=== PATIENT | male | born 1950 | race Caucasian/White ===

== ENCOUNTER 2018-07-30 15:15 | Outpatient (CLI) | payer BC | END 2018-07-30 23:59 | disposition home or self-care (01) | LOC: CARD DIAG 15:15 | PROVIDERS: ATTEND Internal Medicine Cardiovascular Disease | DX: I34.0 Nonrheumatic mitral (valve) insufficiency (principal); Z87.891 Personal history of nicotine dependence | CPT/HCPCS: 93306 ==

== ENCOUNTER 2019-03-25 14:12 | Inpatient (IN) | payer MEDICARE, BC ==
[~2019-03-25] VITALS: Ht 177.8 cm; Wt 94.0 kg
[~2019-03-25 14:12] MED LIST: ATOR10TA70 PO; BUDE10.2 INH; CHOL100046 PO; LOSA50TA3 PO
[2019-03-25 15:57] LABS: BASOPHILS # (AUTO) 0.1 X10'3 (0-0.2); BASOPHILS % (AUTO) 0.8 % (0-1); EOSINOPHILS # (AUTO) 0.1 X10'3 (0-0.9); EOSINOPHILS % (AUTO) 1.4 % (0-6); HEMATOCRIT 42.6 % (42.0-52.0); HEMOGLOBIN 14.9 g/dl (14.0-17.9); LYMPHOCYTES # (AUTO) 2.3 X10'3 (1.1-4.8); LYMPHOCYTES % (AUTO) 24.1 % (21-51); MEAN CORPUSCULAR HEMOGLOBIN 32.4 PG (27.0-31.0); MEAN CORPUSCULAR HGB CONC 35.1 g/dL (33.0-36.5); MEAN CORPUSCULAR VOLUME 92.4 FL (78-98); MONOCYTES % (AUTO) 10.3 % (2-12); NEUTROPHILS % (AUTO) 63.4 % (42-75); PLATELET COUNT 294 X10'3 (140-440); RED BLOOD COUNT 4.61 X10'6 (4.70-6.10); RED CELL DISTRIBUTION WIDTH 13.5 % (11.5-14.5); WHITE BLOOD COUNT 9.4 X10'3 (4.5-11.0)
[2019-03-25 16:13] LABS: ALANINE AMINOTRANSFERASE 47 U/L (12-78); ALBUMIN 3.7 G/DL (3.4-5.0); ALBUMIN/GLOBULIN RATIO 0.9 (1.1-1.5); ALKALINE PHOSPHATASE 68 IU/L (46-116); ANION GAP 6 (8-16); ASPARTATE AMINO TRANSFERASE 23 U/L (10-37); BILIRUBIN,TOTAL 0.4 MG/DL (0.1-1.0); BLOOD UREA NITROGEN 19 MG/DL (7-18); CALCIUM 9.8 MG/DL (8.5-10.1); CHLORIDE 105 MMOL/L (99-107); GLUCOSE 106 MG/DL (70-104); POTASSIUM 4.1 MMOL/L (3.5-5.1); SODIUM 140 MMOL/L (135-145); TOTAL CARBON DIOXIDE 28.7 MMOL/L (24-32); TOTAL PROTEIN 7.7 G/DL (6.4-8.2); eGFR 74 ML/MIN
[2019-03-25] MEDS ORDERED: METO25TA6 PO (19:16)
[2019-03-25] MEDS ORDERED: LOSA100T57 PO (19:16)
[2019-03-25] MEDS ORDERED: ALBU2.5V13 NEB (19:16)
[2019-03-25] MEDS ORDERED: heparin 10,000 units/1 ML INJ IV PRN (20:25)
[2019-03-25] MEDS ORDERED: heparin 10,000 units/1 ML INJ IV ONE ×2 (20:25→20:35)
--- NOTE | 2019-03-25 20:44 | NUR ---
PER . PT NPO AT MIDNIGHT
[2019-03-25] MEDS ORDERED: mag hydrox/Alum hydrox/simeth 30ml oral suspension PO PRN (20:50)
[2019-03-25] MEDS ORDERED: magnesium hydroxide 30ml (MOM) UD suspension PO PRN (20:50)
[2019-03-25] MEDS ORDERED: acetaminophen 325mg tablet PO PRN (20:50)
[2019-03-25] MEDS ORDERED: ondansetron/PF 4mg/2ml inj IV PRN (20:50)
[2019-03-25] MEDS ORDERED: albuterol 2.5 MG/3 ML nebule NEB PRN (20:55)
[2019-03-25] MEDS: heparin 25,000 UNIT/250ml bag 250 ML IV SCH (21:16)
--- NOTE | 2019-03-25 21:29 | NUR ---
pt has clothes, wallet with ID and small amount of huffman, cell phone, and has upper and lower dentures in place.
--- NOTE | 2019-03-25 21:30 | NUR ---
I have received report from ZACKERY Eubanks and had the opportunity to ask questions and assume patient care.
[2019-03-25 21:45] VITALS: BP 150/85
--- NOTE | 2019-03-25 21:45 | NUR ---
Patient arrived to room 307 via [facility] with monitor attached, at bedside, all known belongings with patient. patient ambulated from [facility] to hospital bed. patient VS WNL. Will continue to monitor.
[2019-03-25 22:00] VITALS: BP 126/74
[2019-03-26] VITALS (17 sets, daily range): BP systolic 117–146; BP diastolic 61–83
[2019-03-26] MEDS ORDERED: pneumococcal 23-VAL P-sac vacc 25 mcg/0.5ml vial IMVAC ONE (00:05)
[2019-03-26] MEDS: normal saline 1000ml 1,000 ML IV SCH (01:37)
[2019-03-26 03:40] LABS: BASOPHILS % (AUTO) 0.6 % (0-1); EOSINOPHILS # (AUTO) 0.1 X10'3 (0-0.9); EOSINOPHILS % (AUTO) 1.9 % (0-6); HEMATOCRIT 40.8 % (42.0-52.0); HEMOGLOBIN 14.4 g/dl (14.0-17.9); LYMPHOCYTES # (AUTO) 1.6 X10'3 (1.1-4.8); LYMPHOCYTES % (AUTO) 21.4 % (21-51); MEAN CORPUSCULAR HEMOGLOBIN 32.8 PG (27.0-31.0); MEAN CORPUSCULAR HGB CONC 35.3 g/dL (33.0-36.5); MEAN CORPUSCULAR VOLUME 92.8 FL (78-98); MEAN PLATELET VOLUME 8.4 FL (7.4-10.4); MONOCYTES # (AUTO) 0.8 X10'3 (0-0.9); MONOCYTES % (AUTO) 10.5 % (2-12); NEUTROPHILS # (AUTO) 4.9 X10'3 (1.8-7.7); NEUTROPHILS % (AUTO) 65.6 % (42-75); PLATELET COUNT 263 X10'3 (140-440); RED BLOOD COUNT 4.39 X10'6 (4.70-6.10); RED CELL DISTRIBUTION WIDTH 13.4 % (11.5-14.5); WHITE BLOOD COUNT 7.5 X10'3 (4.5-11.0)
[2019-03-26 04:09] LABS: ALANINE AMINOTRANSFERASE 45 U/L (12-78); ALBUMIN 3.4 G/DL (3.4-5.0); ALKALINE PHOSPHATASE 71 IU/L (46-116); BILIRUBIN,TOTAL 0.4 MG/DL (0.1-1.0); BLOOD UREA NITROGEN 14 MG/DL (7-18); BUN/CREATININE RATIO 14.7 (5.4-32.0); CALCIUM 8.4 MG/DL (8.5-10.1); CREATININE 0.95 MG/DL (0.60-1.10); TOTAL CARBON DIOXIDE 24.2 MMOL/L (24-32); TOTAL PROTEIN 6.9 G/DL (6.4-8.2); eGFR 79 ML/MIN
--- NOTE | 2019-03-26 04:31 | NUR ---
PTT 124, spoke with Dr. Pavon,. stopping heparin gtt, for 2 hours, reduce rate by 3units/kg. and redraw PTT two hours afterwards.
[2019-03-26 05:03] LABS: ANION GAP 10 (8-16); ASPARTATE AMINO TRANSFERASE 24 U/L (10-37); CHLORIDE 107 MMOL/L (99-107); GLUCOSE 157 MG/DL (70-104); POTASSIUM 3.8 MMOL/L (3.5-5.1); SODIUM 141 MMOL/L (135-145)
--- NOTE | 2019-03-26 05:45 | NUR ---
[place] documentation and medication administration: I have reviewed and agree with all interventions, assessments performed and documented by ZACKERY Olmedo.
--- NOTE | 2019-03-26 06:00 | NUR ---
Problems reprioritized. Patient report given, questions answered & plan of care reviewed with ZACKERY Brewer.
[2019-03-26] MEDS: heparin 25,000 UNIT/250ml bag 250 ML IV SCH (06:28)
--- NOTE | 2019-03-26 06:30 | NUR ---
Patient in room MED 307. I have received report from Honorio Bell and Teodora BELL and had the opportunity to ask questions and assume patient care.
[2019-03-26] MEDS: metoprolol tartrate 25mg tablet PO SCH ×2 (09:44→20:52)
[2019-03-26] MEDS: atorvastatin 10mg tablet PO SCH (09:45)
[2019-03-26] MEDS: losartan 50mg tablet PO SCH (09:46)
[2019-03-26] MEDS: heparin 1,000 UNITS/NS 500ml 500 ML IV SCH (10:18)
[2019-03-26] MEDS ORDERED: iohexol 300mg/ml 100ml inj. ONE (10:19)
[2019-03-26] MEDS ORDERED: LIDOcaine 1%/PF 5ML 10 MG/ML VIAL ONE (10:19)
[2019-03-26] MEDS ORDERED: LIDOcaine 1%/PF 5ML 10 MG/ML VIAL SQ ONE (10:25)
[2019-03-26] MEDS ORDERED: fentaNYL/PF 50MCG/1 ML 2ML syringe IV PRN (10:25)
[2019-03-26] MEDS ORDERED: midazolam 2 mg/2 ml injection IV PRN (10:25)
[2019-03-26] MEDS ORDERED: heparin 1,000 UNITS/NS 500ml 500 ML ONE ×2 (10:27→11:27)
[2019-03-26] MEDS ORDERED: fentaNYL/PF 50MCG/1 ML 2ML syringe ONE ×2 (10:27→11:10)
[2019-03-26] MEDS ORDERED: midazolam 2 mg/2 ml injection ONE ×2 (10:27→11:10)
--- NOTE | 2019-03-26 10:45 | NUR ---
Dr. Mackey came to consult and educate patient on upcoming procedure to dissolve the clot. Saurabh ROMERO RN here to transport patient to procedure room. Patient will go to Room 2037 in ICU after procedure, report to be called.
[2019-03-26] MEDS ORDERED: tPA-cathflo 2mg/2ml IV flush 4 MG in normal saline 100ml IV soln 100 ML ICATH SCH (11:00)
--- NOTE | 2019-03-26 12:15 | NUR ---
Pt arrived to floor and transferred to hospital bed and placed on monitor; vital signs stable. Pt oriented to room with call light in reach. Pt educated to not move left arm. Orders for nolan catheter; however, pt requesting to use urinal instead of catheter.
[2019-03-26] MEDS: tPA-cathflo 2mg/2ml IV flush 4 MG in normal saline 100ml IV soln 100 ML ICATH SCH (18:00)
--- NOTE | 2019-03-26 18:30 | NUR ---
Problems reprioritized. Patient report given, questions answered & plan of care reviewed with Liz VIZCARRA.
--- NOTE | 2019-03-26 18:30 | NUR ---
Patient in room ICU 2037. I have received report from ZACKERY Crawford and had the opportunity to ask questions and assume patient care.
[2019-03-26 22:20] LABS: HEMOGLOBIN 13.6 g/dl (14.0-17.9); MEAN CORPUSCULAR HEMOGLOBIN 32.6 PG (27.0-31.0); MEAN CORPUSCULAR VOLUME 93.2 FL (78-98); MEAN PLATELET VOLUME 8.3 FL (7.4-10.4); PLATELET COUNT 238 X10'3 (140-440); RED BLOOD COUNT 4.18 X10'6 (4.70-6.10); RED CELL DISTRIBUTION WIDTH 13.3 % (11.5-14.5); WHITE BLOOD COUNT 7.2 X10'3 (4.5-11.0)
[2019-03-27] VITALS (24 sets, daily range): BP systolic 119–155; BP diastolic 59–84
[2019-03-27] MEDS: heparin 1,000 UNITS/NS 500ml 500 ML IV SCH (00:23)
[2019-03-27] MEDS: tPA-cathflo 2mg/2ml IV flush 4 MG in normal saline 100ml IV soln 100 ML ICATH SCH ×2 (00:24→06:00)
[2019-03-27 04:20] LABS: BASOPHILS % (AUTO) 0.3 % (0-1); EOSINOPHILS # (AUTO) 0.1 X10'3 (0-0.9); EOSINOPHILS % (AUTO) 1.2 % (0-6); HEMATOCRIT 40.1 % (42.0-52.0); HEMOGLOBIN 13.7 g/dl (14.0-17.9); LYMPHOCYTES # (AUTO) 1.7 X10'3 (1.1-4.8); MEAN CORPUSCULAR HEMOGLOBIN 32.1 PG (27.0-31.0); MEAN CORPUSCULAR HGB CONC 34.2 g/dL (33.0-36.5); MEAN CORPUSCULAR VOLUME 93.8 FL (78-98); MEAN PLATELET VOLUME 7.9 FL (7.4-10.4); MONOCYTES # (AUTO) 0.9 X10'3 (0-0.9); MONOCYTES % (AUTO) 9.8 % (2-12); NEUTROPHILS # (AUTO) 6.7 X10'3 (1.8-7.7); NEUTROPHILS % (AUTO) 70.7 % (42-75); PLATELET COUNT 230 X10'3 (140-440); RED BLOOD COUNT 4.27 X10'6 (4.70-6.10); RED CELL DISTRIBUTION WIDTH 13.3 % (11.5-14.5); WHITE BLOOD COUNT 9.4 X10'3 (4.5-11.0)
[2019-03-27 04:34] LABS: ALANINE AMINOTRANSFERASE 33 U/L (12-78); ALBUMIN 3.1 G/DL (3.4-5.0); ALBUMIN/GLOBULIN RATIO 0.9 (1.1-1.5); ALKALINE PHOSPHATASE 67 IU/L (46-116); ANION GAP 8 (8-16); ASPARTATE AMINO TRANSFERASE 13 U/L (10-37); BILIRUBIN,TOTAL 0.6 MG/DL (0.1-1.0); BLOOD UREA NITROGEN 10 MG/DL (7-18); BUN/CREATININE RATIO 10.3 (5.4-32.0); CHLORIDE 106 MMOL/L (99-107); CREATININE 0.97 MG/DL (0.60-1.10); GLUCOSE 119 MG/DL (70-104); SODIUM 140 MMOL/L (135-145); TOTAL CARBON DIOXIDE 26.5 MMOL/L (24-32); TOTAL PROTEIN 6.4 G/DL (6.4-8.2); eGFR 77 ML/MIN
[2019-03-27 04:40] LABS: PARTIAL THROMBOPLASTIN TIME 34 SECONDS (22-32)
[2019-03-27] MEDS: metoprolol tartrate 25mg tablet PO SCH ×2 (09:03→19:25)
[2019-03-27] MEDS: atorvastatin 10mg tablet PO SCH (09:03)
[2019-03-27] MEDS: losartan 50mg tablet PO SCH (09:04)
[2019-03-27] MEDS ORDERED: iohexol 300mg/ml 100ml inj. ONE (10:22)
[2019-03-27] MEDS ORDERED: fentaNYL/PF 50MCG/1 ML 2ML syringe ONE ×2 (10:47→11:02)
[2019-03-27] MEDS ORDERED: heparin 1,000 UNITS/NS 500ml 500 ML ONE (10:50)
[2019-03-27] MEDS: enoxaparin 30mg/0.3ml syringe SUBCUT SCH ×2 (12:14→19:23)
[2019-03-27] MEDS: enoxaparin 60mg/0.6ml syringe SUBCUT SCH ×2 (12:16→19:24)
[2019-03-27 13:57] LABS: HEMATOCRIT 39.6 % (42.0-52.0); HEMOGLOBIN 13.9 g/dl (14.0-17.9); MEAN CORPUSCULAR HGB CONC 35.2 g/dL (33.0-36.5); MEAN CORPUSCULAR VOLUME 93.7 FL (78-98); MEAN PLATELET VOLUME 8.5 FL (7.4-10.4); PLATELET COUNT 226 X10'3 (140-440); RED BLOOD COUNT 4.23 X10'6 (4.70-6.10); RED CELL DISTRIBUTION WIDTH 13.6 % (11.5-14.5); WHITE BLOOD COUNT 9.9 X10'3 (4.5-11.0)
--- NOTE | 2019-03-27 16:52 | NUR ---
Pt was off the unit from 1028 to 1145 in IR. Sheat removed, Heparin and TPA D/C. Pt returned to unit at 1145. In stable condition. L-arm warm, pulses palpable, no Numbness or tingling.
--- NOTE | 2019-03-27 17:31 | NUR ---
Pt transferred to room 3012 per w/c. in stable condition. Report given to RN upstairs.
--- NOTE | 2019-03-27 17:33 | NUR ---
received report from ZACKERY Briceno in ICU. pt arrived to unit in stable condition with at bedside. pt alert and oriented. small dressing on left upper arm. palpable radial and pedal pulses. tele in place. pt oriented to room, bed locked, low, call light in reach.
--- NOTE | 2019-03-27 18:15 | NUR ---
Problems reprioritized. Patient report given, questions answered & plan of care reviewed with ZACKERY Weston.
--- NOTE | 2019-03-27 18:16 | NUR ---
Patient in room PCU 3012. I have received report from ZACKERY Prado and had the opportunity to ask questions and assume patient care.
[2019-03-27] MEDS: normal saline 1000ml 1,000 ML IV SCH (20:48)
[2019-03-28 02:00] VITALS: BP 127/80
[2019-03-28 06:06] LABS: BASOPHILS % (AUTO) 0.4 % (0-1); EOSINOPHILS # (AUTO) 0.1 X10'3 (0-0.9); EOSINOPHILS % (AUTO) 1.6 % (0-6); HEMATOCRIT 40.3 % (42.0-52.0); HEMOGLOBIN 13.9 g/dl (14.0-17.9); LYMPHOCYTES # (AUTO) 2.2 X10'3 (1.1-4.8); LYMPHOCYTES % (AUTO) 22.8 % (21-51); MEAN CORPUSCULAR HEMOGLOBIN 32.4 PG (27.0-31.0); MEAN CORPUSCULAR HGB CONC 34.6 g/dL (33.0-36.5); MEAN CORPUSCULAR VOLUME 93.9 FL (78-98); MEAN PLATELET VOLUME 8.9 FL (7.4-10.4); MONOCYTES % (AUTO) 10.1 % (2-12); NEUTROPHILS # (AUTO) 6.2 X10'3 (1.8-7.7); NEUTROPHILS % (AUTO) 65.1 % (42-75); PLATELET COUNT 214 X10'3 (140-440); RED CELL DISTRIBUTION WIDTH 13.2 % (11.5-14.5); WHITE BLOOD COUNT 9.5 X10'3 (4.5-11.0)
--- NOTE | 2019-03-28 06:15 | NUR ---
Patient in room PCU 3012a. I have received report from ZACKERY Weston and had the opportunity to ask questions and assume patient care. Patient sleeping at this time, no distress noted. Will continue to monitor.
--- NOTE | 2019-03-28 06:20 | NUR ---
Problems reprioritized. Patient report given, questions answered & plan of care reviewed with ZACKERY Abraham.
[2019-03-28 06:49] LABS: ALANINE AMINOTRANSFERASE 30 U/L (12-78); ALBUMIN 3.3 G/DL (3.4-5.0); ALBUMIN/GLOBULIN RATIO 0.9 (1.1-1.5); ALKALINE PHOSPHATASE 71 IU/L (46-116); ANION GAP 11 (8-16); ASPARTATE AMINO TRANSFERASE 15 U/L (10-37); BILIRUBIN,TOTAL 0.7 MG/DL (0.1-1.0); BLOOD UREA NITROGEN 12 MG/DL (7-18); BUN/CREATININE RATIO 12.9 (5.4-32.0); CALCIUM 8.8 MG/DL (8.5-10.1); CHLORIDE 104 MMOL/L (99-107); CREATININE 0.93 MG/DL (0.60-1.10); GLUCOSE 120 MG/DL (70-104); POTASSIUM 3.8 MMOL/L (3.5-5.1); SODIUM 140 MMOL/L (135-145); TOTAL CARBON DIOXIDE 24.6 MMOL/L (24-32); eGFR 81 ML/MIN
[2019-03-28 07:06] VITALS: BP 148/90
[2019-03-28] MEDS: metoprolol tartrate 25mg tablet PO SCH (07:19)
[2019-03-28] MEDS: losartan 50mg tablet PO SCH (07:19)
[2019-03-28] MEDS: atorvastatin 10mg tablet PO SCH (07:19)
[2019-03-28] MEDS: enoxaparin 30mg/0.3ml syringe SUBCUT SCH (07:20)
[2019-03-28] MEDS: enoxaparin 60mg/0.6ml syringe SUBCUT SCH (07:20)
[2019-03-28 10:43] LABS: HEMATOCRIT 39.1 % (42.0-52.0); HEMOGLOBIN 13.7 g/dl (14.0-17.9); MEAN CORPUSCULAR HEMOGLOBIN 32.4 PG (27.0-31.0); MEAN CORPUSCULAR HGB CONC 35.1 g/dL (33.0-36.5); MEAN CORPUSCULAR VOLUME 92.3 FL (78-98); MEAN PLATELET VOLUME 8.3 FL (7.4-10.4); PLATELET COUNT 229 X10'3 (140-440); RED BLOOD COUNT 4.23 X10'6 (4.70-6.10); RED CELL DISTRIBUTION WIDTH 13.2 % (11.5-14.5); WHITE BLOOD COUNT 8.7 X10'3 (4.5-11.0)
[2019-03-28 11:00] VITALS: BP 129/79
[2019-03-28] MEDS ORDERED: APIX5TAB3 PO (11:42)
--- NOTE | 2019-03-28 12:27 | NUR ---
Patient stable for discharge per MD. Patient given education on discharge instruction and new medications. New rx faxed to [facility] on [address] by MD. Patient verbalized understanding. PIV d/c'd, catheter intact. Tele monitor removed and returned to television schedule coordinator. Patient ambulated off unit with staff without difficulty.
== END 2019-03-28 12:25 | disposition home or self-care (01) | DRG 253 ==
LOC: ER 14:13 → MED 3N 21:46 → ICU 2S 03-26 12:15 → PCU 3S 03-27 17:28
PROVIDERS: ADMIT Internal Medicine; ATTEND Family Medicine
PROC: 3E0234Z Introduction of Serum, Toxoid and Vaccine into Muscle, Percutaneous Approach (ICD-10-PCS; 2019-03-26)
PROC: B51N1ZZ Fluoroscopy of Left Upper Extremity Veins using Low Osmolar Contrast (ICD-10-PCS; 2019-03-26)
PROC: B5171ZZ Fluoroscopy of Left Subclavian Vein using Low Osmolar Contrast (ICD-10-PCS; 2019-03-26)
PROC: 3E05317 Introduction of Other Thrombolytic into Peripheral Artery, Percutaneous Approach (ICD-10-PCS; 2019-03-26)
PROC: 05763ZZ Dilation of Left Subclavian Vein, Percutaneous Approach (ICD-10-PCS; principal; 2019-03-27)
PROC: B51N1ZZ Fluoroscopy of Left Upper Extremity Veins using Low Osmolar Contrast (ICD-10-PCS; 2019-03-27)
PROC: B5171ZZ Fluoroscopy of Left Subclavian Vein using Low Osmolar Contrast (ICD-10-PCS; 2019-03-27)
DX: I82.B12 Acute embolism and thrombosis of left subclavian vein (principal); D68.59 Other primary thrombophilia; I82.A12 Acute embolism and thrombosis of left axillary vein; E66.9 Obesity, unspecified; Z68.29 Body mass index [BMI] 29.0-29.9, adult; E78.00 Pure hypercholesterolemia, unspecified; E78.5 Hyperlipidemia, unspecified; I10 Essential (primary) hypertension; K21.9 Gastro-esophageal reflux disease without esophagitis; J44.9 Chronic obstructive pulmonary disease, unspecified; I49.5 Sick sinus syndrome; I25.10 Atherosclerotic heart disease of native coronary artery without angina pectoris; Z79.01 Long term (current) use of anticoagulants; Z23 Encounter for immunization; Z86.718 Personal history of other venous thrombosis and embolism; Z95.0 Presence of cardiac pacemaker; Z87.891 Personal history of nicotine dependence
CPT/HCPCS: 36005; 36415; 37212; 37214; 37248; 71045; 75820; 76937; 80053; 82948; 83880; 85025; 85027; 85384; 85610; 85730; 87081; 90732; 93005; 93971; 96365; 99152; 99153; 99285; C1725; C1729; C1769; C1894; G0378; J1644; J1650; J2250; J2997; J3010; J7030; Q9967

== ENCOUNTER 2020-07-10 06:05 | Day surgery (SDC) | payer BC, MEDICARE ==
[2020-07-09 14:40] LABS: BASOPHILS # (AUTO) 0.1 X10'3 (0-0.2); BASOPHILS % (AUTO) 0.7 % (0-1); EOSINOPHILS # (AUTO) 0.1 X10'3 (0-0.9); EOSINOPHILS % (AUTO) 1.5 % (0-6); HEMATOCRIT 40.6 % (42.0-52.0); HEMOGLOBIN 13.8 g/dl (14.0-17.9); LYMPHOCYTES # (AUTO) 2.1 X10'3 (1.1-4.8); LYMPHOCYTES % (AUTO) 26.7 % (21-51); MEAN CORPUSCULAR HEMOGLOBIN 31.7 PG (27.0-31.0); MEAN CORPUSCULAR VOLUME 93.3 FL (78-98); MEAN PLATELET VOLUME 7.8 FL (7.4-10.4); MONOCYTES # (AUTO) 0.7 X10'3 (0-0.9); MONOCYTES % (AUTO) 8.5 % (2-12); NEUTROPHILS # (AUTO) 4.9 X10'3 (1.8-7.7); NEUTROPHILS % (AUTO) 62.6 % (42-75); PLATELET COUNT 314 X10'3 (140-440); RED BLOOD COUNT 4.35 X10'6 (4.70-6.10); RED CELL DISTRIBUTION WIDTH 12.9 % (11.5-14.5); WHITE BLOOD COUNT 7.8 X10'3 (4.5-11.0)
[2020-07-09 14:48] LABS: ALBUMIN 3.8 G/DL (3.4-5.0); ANION GAP 5 (8-16); BLOOD UREA NITROGEN 17 MG/DL (7-18); BUN/CREATININE RATIO 15.2 (5.4-32.0); CALCIUM 9.4 MG/DL (8.5-10.1); CHLORIDE 103 MMOL/L (99-107); CREATININE 1.12 MG/DL (0.60-1.10); GLUCOSE 117 MG/DL (70-104); POTASSIUM 3.9 MMOL/L (3.5-5.1); SODIUM 139 MMOL/L (135-145); TOTAL CARBON DIOXIDE 30.6 MMOL/L (24-32); eGFR 65 ML/MIN
[2020-07-09 14:52] LABS: PARTIAL THROMBOPLASTIN TIME 28 SECONDS (22-32)
[~2020-07-10] VITALS: Ht 177.8 cm; Wt 94.2 kg
[2020-07-10] VITALS (11 sets, daily range): BP systolic 103–122; BP diastolic 61–81
[~2020-07-10 06:05] MED LIST changes: +ALBU2.5V13 NEB; +APIX5TAB3 PO; -BUDE10.2 INH; -CHOL100046 PO; +LOSA100T57 PO; -LOSA50TA3 PO; +METO25TA6 PO
[2020-07-10] MEDS ORDERED: LORazepam 0.5 MG tablet PO PRN (06:20)
[2020-07-10] MEDS ORDERED: normal saline 1,000 ML IV SCH (06:20)
[2020-07-10] MEDS ORDERED: diphenhydrAMINE 25mg capsule PO PRN (06:20)
[2020-07-10] MEDS ORDERED: LIDOcaine/PRILOcaine 5gm cream TP ONE (06:20)
[2020-07-10] MEDS ORDERED: FURO40TA4 PO (06:26)
[2020-07-10] MEDS ORDERED: NITR0.4T48 SL (06:26)
[2020-07-10] MEDS ORDERED: CHOL100025 PO (06:26)
[2020-07-10] MEDS ORDERED: OMEP-50 PO (06:26)
[2020-07-10] MEDS ORDERED: METO-395 PO (06:26)
[2020-07-10] MEDS ORDERED: ASPI-611 PO (06:26)
[2020-07-10] MEDS ORDERED: POTA-82 PO (06:26)
[2020-07-10] MEDS ORDERED: LIDOcaine 1% (10mg/ml)w/preservative injection 20ml MDV ONE (07:23)
[2020-07-10] MEDS ORDERED: fentaNYL/PF 50MCG/1 ML 2ML syringe ONE (07:23)
[2020-07-10] MEDS ORDERED: verapamil 2.5 mg/ml inj IV ONE (07:23)
[2020-07-10] MEDS ORDERED: midazolam 2 mg/2 ml injection ONE (07:23)
[2020-07-10] MEDS ORDERED: heparin 1,000unit/ml 10ml vial 10 ML ONE (07:23)
[2020-07-10] MEDS ORDERED: nitroGLYCERIN-Tridil 50MG/D5W 250 ML IV ONE (07:23)
[2020-07-10] MEDS ORDERED: iohexol 350 MG/ML 50ML vial IV ONE (07:24)
[2020-07-10] MEDS ORDERED: iohexol 350MG/ML 100ml bottle IV ONE (07:24)
--- NOTE | 2020-07-10 07:37 | NUR ---
pt left unit for procedure.
[2020-07-10] MEDS ORDERED: normal saline 1000ml 1,000 ML IV ONE (08:45)
--- NOTE | 2020-07-10 12:45 | NUR ---
Pt sitting up in bed. Finished 100% of lunch tray, 250ml oral fluid intake.
--- NOTE | 2020-07-10 13:25 | NUR ---
Pt verbalized understanding of written and verbal instructions, all questions answered. Pt ambulated bathroom, voided.
== END 2020-07-10 14:00 | disposition home or self-care (01) ==
LOC: SSTAY O 06:05
PROVIDERS: ATTEND Internal Medicine Cardiovascular Disease
DX: R94.39 Abnormal result of other cardiovascular function study (principal); R53.83 Other fatigue; R06.02 Shortness of breath; I25.119 Atherosclerotic heart disease of native coronary artery with unspecified angina pectoris; F40.240 Claustrophobia; E78.49 Other hyperlipidemia; G47.30 Sleep apnea, unspecified; J44.9 Chronic obstructive pulmonary disease, unspecified; K21.9 Gastro-esophageal reflux disease without esophagitis; E55.9 Vitamin D deficiency, unspecified; Z79.899 Other long term (current) drug therapy; Z87.891 Personal history of nicotine dependence; Z86.718 Personal history of other venous thrombosis and embolism; Z98.890 Other specified postprocedural states; Z95.0 Presence of cardiac pacemaker; Z82.49 Family history of ischemic heart disease and other diseases of the circulatory system
CPT/HCPCS: 36415; 76937; 80048; 85025; 85610; 85730; 93005; 93458; 99152; C1769; C1894; J1644; J2001; J2250; J3010; J7030; Q0163; Q9967; 99153; A4620; J3490